=== PATIENT | female | born 1965 | race Caucasian/White ===

== ENCOUNTER 2020-08-25 19:17 | Emergency (ER) | payer BC, OTHER ==
[2020-08-25 19:56] VITALS: TEMP 98.7
[2020-08-25] MEDS ORDERED: SODIUM CHLORIDE 0.9% 1,000 ML IV STA (20:33)
[2020-08-25] MEDS ORDERED: diphenhydrAMINE 50 MG/ML 1 ML VIAL IVP STA (20:34)
[2020-08-25] MEDS ORDERED: KETOROLAC 15 MG/ML 1 ML VIAL IVP STA (20:34)
[2020-08-25] MEDS ORDERED: METOCLOPRAMIDE 5 MG/ML 2 ML VIAL IVP STA (20:34)
[2020-08-25 21:07] LABS: Basophils % (A) 0 %; Eosinophils # (A) 0.1 k/uL (0-0.7); Eosinophils % (A) 1 %; HCT 37.1 % (34.0-46.0); HGB 12.4 gm/dL (11.4-16.0); Lymphocytes % (A) 21 %; MCH 30.5 pg (25.0-35.0); MCHC 33.5 g/dL (31.0-37.0); MCV 91.2 fL (80.0-100.0); Monocytes # (A) 0.4 k/uL (0-1.0); Monocytes % (A) 4 %; Neutrophils # (A) 6.7 k/uL (1.3-7.7); Neutrophils % (A) 72 %; Platelet Count 251 k/uL (150-450); RBC 4.07 m/uL (3.80-5.40); RDW 13.6 % (11.5-15.5); WBC 9.4 k/uL (3.8-10.6)
--- NOTE | 2020-08-25 21:12 | ED ---
Recheck HPI - General Chief Complaint: Recheck/Abnormal Lab/Rx Stated Complaint: High Blood Pressure Time Seen by Provider: 08/25/20 20:09 Source: patient Mode of arrival: ambulatory Limitations: no limitations - History of Present Illness Initial Comments: Patient is a 55-year-old female presenting to the emergency Department with complaints of elevated blood pressure as well as a headache. Patient states she saw her PCP today for a normal checkup and had elevated blood pressure during her visit. Patient was started on losartan, took one dose and was monitoring her pressures at home. He states he remained high, in the "200's/100's" and with her headache she decided to come into the ER. She denies any chest pain, shortness of breath, nausea, vomiting, blurry vision. She states she's never had issues with her blood pressure in the past. She does have history of anxiety. She denies any recent fever or chills. She has no further complaints at this time. Upon arrival to the ER, her blood pressures 174/92, rest of vitals normal. - Related Data Home Medications Medication Instructions Recorded Confirmed ALPRAZolam [Xanax] 0.5 mg PO TID PRN 08/25/20 08/25/20 Atorvastatin [Lipitor] 80 mg PO DAILY 08/25/20 08/25/20 Ibuprofen [Motrin] 800 mg PO TID PRN 08/25/20 08/25/20 Levothyroxine Sodium 125 mcg PO SUMOWEFRSA 08/25/20 08/25/20 Levothyroxine Sodium 250 mcg PO TUTH 08/25/20 08/25/20 Losartan-Hctz 50-12.5 mg [Hyzaar 1 tab PO DAILY 08/25/20 08/25/20 50-12.5] Allergies Allergy/AdvReac Type Severity Reaction Status Date / Time No Known Allergies Allergy Verified 08/25/20 22:02 Review of Systems ROS Statement: Those systems with pertinent positive or pertinent negative responses have been documented in the HPI. ROS Other: All systems not noted in ROS Statement are negative. Past Medical History Past Medical History: Hyperlipidemia, Hypertension, Thyroid Disorder History of Any Multi-Drug Resistant Organisms: None Reported Past Surgical History: No Surgical Hx Reported Past Psychological History: Anxiety Smoking Status: Former smoker, Vaper Past Alcohol Use History: None Reported Past Drug Use History: None Reported General Exam - General Exam Comments Initial Comments: GENERAL: Patient is well-developed and well-nourished. Patient is nontoxic and in no acute distress. HEAD: Atraumatic, normocephalic. EYES: Pupils equal round and reactive to light, extraocular movements intact, sclera anicteric, conjunctiva are normal. Eyelids were unremarkable. ENT: TMs normal, nares patent, oropharynx clear without exudates. Moist mucous membranes. NECK: Normal range of motion, supple without lymphadenopathy or JVD. LUNGS: Unlabored respirations. Breath sounds clear to auscultation bilaterally and equal. No wheezes rales or rhonchi. HEART: Regular rate and rhythm without murmurs, rubs or gallops. ABDOMEN: Soft, nontender, normoactive bowel sounds. No guarding, no rebound. No masses appreciated. : Deferred MUSCULOSKELETAL: Normal extremities with adequate strength and normal range of motion, no pitting or edema. No clubbing or cyanosis. NEUROLOGICAL: Patient is alert and oriented x 3. Motor and sensory are also intact. Cranial nerves II through XII grossly intact. Symmetrical smile. Normal speech, normal gait. PSYCH: Normal mood, normal affect. SKIN: Warm, Dry, normal turgor, no rashes or lesions noted. Limitations: no limitations Course Vital Signs 08/25/20 08/25/20 19:51 21:34 Temperature 98.7 F Pulse Rate 86 70 Respiratory 20 18 Rate Blood Pressure 174/92 117/73 O2 Sat by Pulse 99 100 Oximetry Medical Decision Making - Medical Decision Making Patient is a 55-year-old female here with elevated blood pressure as well as a headache for 2 days. She was started on losartan today by her PCP and has taken one dose. Patient states her headaches been going on for 2-3 days. Her blood pressure 174/92 on arrival, rest of vitals normal. Her exam is unremarkable. Labs show no acute abnormality, patient was given fluids, Toradol, Benadryl and Reglan for her headache. Patient's blood pressure responded nicely, decreased to 117/73. Patient states her headache is also decreased. She feels well enough to be discharged. I recommended continuing with her newly prescribed a blood pressure medication. She can follow up with her PCP. Return parameters were discussed with the patient she verbalized understanding. Case discussed with Dr. Grimes. - Lab Data Result diagrams: 08/25/20 20:39 08/25/20 20:39 Lab Results 08/25/20 08/25/20 Range/Units 20:39 20:39 WBC 9.4 (3.8-10.6) k/uL RBC 4.07 (3.80-5.40) m/uL Hgb 12.4 (11.4-16.0) gm/dL Hct 37.1 (34.0-46.0) % MCV 91.2 (80.0-100.0) fL MCH 30.5 (25.0-35.0) pg MCHC 33.5 (31.0-37.0) g/dL RDW 13.6 (11.5-15.5) % Plt Count 251 (150-450) k/uL Neutrophils % 72 % Lymphocytes % 21 % Monocytes % 4 % Eosinophils % 1 % Basophils % 0 % Neutrophils # 6.7 (1.3-7.7) k/uL Lymphocytes # 2.0 (1.0-4.8) k/uL Monocytes # 0.4 (0-1.0) k/uL Eosinophils # 0.1 (0-0.7) k/uL Basophils # 0.0 (0-0.2) k/uL Sodium 137 (137-145) mmol/L Potassium 3.7 (3.5-5.1) mmol/L Chloride 103 (98-107) mmol/L Carbon Dioxide 26 (22-30) mmol/L Anion Gap 8 mmol/L BUN 12 (7-17) mg/dL Creatinine 0.67 (0.52-1.04) mg/dL Est GFR (CKD-EPI)AfAm >90 (>60 ml/min/1.73 sqM) Est GFR (CKD-EPI)NonAf >90 (>60 ml/min/1.73 sqM) Glucose 113 H (74-99) mg/dL Calcium 9.5 (8.4-10.2) mg/dL Total Bilirubin 0.8 (0.2-1.3) mg/dL AST 19 (14-36) U/L ALT 15 (4-34) U/L Alkaline Phosphatase 115 (38-126) U/L Total Protein 6.8 (6.3-8.2) g/dL Albumin 4.2 (3.5-5.0) g/dL Disposition Clinical Impression: Hypertension, Headache Disposition: HOME SELF-CARE Condition: Stable Instructions (If sedation given, give patient instructions): Acute Headache (ED) Additional Instructions: Please return to the Emergency Department if symptoms worsen or any other concerns. Continue with already prescribed medication. Increase water intake over the next few days. Follow-up with PCP as needed. Is patient prescribed a controlled substance at d/c from ED?: No Referrals: Buddy Andre DO [Primary Care Provider] - 1-2 days
[2020-08-25 21:14] LABS: ALT 15 U/L (4-34); AST 19 U/L (14-36); African American GFR (CKD) >90 (>60 ml/min/1.73 sqM); Albumin 4.2 g/dL (3.5-5.0); Alkaline Phosphatase 115 U/L (38-126); Anion Gap 8 mmol/L; Blood Urea Nitrogen 12 mg/dL (7-17); Calcium 9.5 mg/dL (8.4-10.2); Carbon Dioxide 26 mmol/L (22-30); Chloride 103 mmol/L (98-107); Glucose 113 mg/dL (74-99); Non-African American GFR(CKD) >90 (>60 ml/min/1.73 sqM); Potassium 3.7 mmol/L (3.5-5.1); Sodium 137 mmol/L (137-145); Total Bilirubin 0.8 mg/dL (0.2-1.3); Total Protein 6.8 g/dL (6.3-8.2)
[2020-08-25 21:35] VITALS: BP 117/73; PULSE 70; RESP 18
== END 2020-08-25 22:08 | disposition home or self-care (01) ==
LOC: EC 19:17
DX: I10 Essential (primary) hypertension (principal); R51.9 Headache, unspecified; E78.5 Hyperlipidemia, unspecified; F41.9 Anxiety disorder, unspecified; Z79.899 Other long term (current) drug therapy; Z79.890 Hormone replacement therapy; Z87.891 Personal history of nicotine dependence
CPT/HCPCS: 36415; 80053; 85025; 99283; 96374; 96375 ×2; 96361; J1200; J2765; J1885

== ENCOUNTER → 2022-03-14 | Outpatient (CLI) | payer OTHER ==
--- NOTE | 2022-03-14 10:40 | XR ---
EXAMINATION TYPE: XR thoracic spine 3 views complete, XR scapula 2 views LT, XR shoulder complete 3 v iews LT, XR pelvis AP view DATE OF EXAM: 03/14/2022 Comparison: None Clinical History: 56-year-old female fall and pain, S40.012A, S20.222A, S70.02XA Findings: Thoracic spine: Leftward truncal shift. 12 thoracic vertebral bodies. All pedicles are visualized. Mild degenerative disc disease lower third thoracic spine. Vertebral body heights are preserved and alignment is mainta ined. There is a 1.6 cm round calcification projecting at the right upper quadrant, possible gallstone. Left shoulder: Mild degenerative change AC joint with mild joint space narrowing and marginal spurring. Subacromial space is preserved. No tendinous or bursal calcifications. Smooth delineation of the greater tuberosi ty. No acute fracture, subluxation, or dislocation. Left scapula: No acute fracture identified. Pelvis: SI joints appear symmetric and intact. Mild degenerative changes left SI joint. Mild degenerative wellington nge pubic symphysis. Hips appear symmetric and intact. Some vascular calcifications along the medial aspect of the upper thighs on both sides. No acute fracture, subluxation, or dislocation. Impression: 1. Thoracic spine: Leftward truncal shift may be positional or due to muscle spasm or pain. Mild dege nerative disc disease lower third thoracic spine. No vertebral compression collapse or malalignment. Incidental: 1.6 cm round calcification projecting at the right upper quadrant, possible gallstone. 2. Left shoulder and left scapula: Mild AC joint OA. No acute osseous abnormality seen. 3. Pelvis: Mild left SI joint joint. No acute osseous abnormality seen.
== END | disposition home or self-care (01) ==
LOC: RADXRMAIN 09:12
PROVIDERS: ATTEND Emergency Medicine
DX: M51.34 Other intervertebral disc degeneration, thoracic region (principal); M19.012 Primary osteoarthritis, left shoulder
CPT/HCPCS: 72072; 72170

== ENCOUNTER → 2022-04-07 | Outpatient (CLI) | payer SELFPAY ==
--- NOTE | 2022-04-07 08:16 | US ---
EXAMINATION TYPE: US abdomen complete DATE OF EXAM: 04/07/2022 COMPARISON: NONE CLINICAL HISTORY: R10.11 RUQ PAIN R93.3 ABNORMAL FINDING DIAGNOSTIC IMAGING. calcification noted on recent x-ray ?gallstone EXAM MEASUREMENTS: Liver Length: 16.4 cm Gallbladder Wall: 0.2 cm CBD: 0.4 cm Spleen: 11.5 cm Right Kidney: 11.7 x 3.7 x 4.7 cm Left Kidney: 12.8 x 4.7 x 4.8 cm Pancreas: Tail obscured by overlying bowel gas Liver: cystic areas noted, largest = 2.6 x 2.4 x 2.7cm, some may be adjacent or septated cysts. Gallbladder: multiple stones Evidence for sonographic Bland's sign: no CBD: wnl Spleen: wnl Right Kidney: no evidence of hydronephrosis Left Kidney: cystic area upper pole = 2.2 x 1.7 x 2.3cm Upper IVC: wnl Abd Aorta: calcifications noted IMPRESSION: 1. Cholelithiasis. 2. Scattered hepatic cysts 3. Left renal cysts
== END | disposition home or self-care (01) ==
LOC: RADUSWWP 06:47
PROVIDERS: ATTEND Family Medicine
DX: K80.20 Calculus of gallbladder without cholecystitis without obstruction (principal); K76.89 Other specified diseases of liver; N28.1 Cyst of kidney, acquired
CPT/HCPCS: 76700

== ENCOUNTER → 2023-05-24 | Outpatient (CLI) | payer OTHER ==
--- NOTE | 2023-05-25 07:28 | MM ---
Reason for Exam: Screening (asymptomatic). Last mammogram was performed 3 year(s) and 9 month(s) ago. Patient History: Menarche at age 15. First Full-Term at age 19. Postmenopausal. Estrogen for 1 month starting at age 46. Maternal aunt had breast cancer, age 67. Risk Values: Whitney 5 year model risk: 1.1%. NCI Lifetime model risk: 6.3%. Prior Study Comparison: 08/05/2014 Bilateral Screening Mammogram, [facility]. 10/01/2015 Bilateral Screening Mammogram, [facility]. 08/08/2019 Bilateral Screening Mammogram, [facility]. Tissue Density: There are scattered fibroglandular densities. Findings: Analyzed By CAD. There is no suspicious group of microcalcifications or new suspicious mass in either breast. Overall Assessment: Benign, BI-RAD 2 Management: Screening Mammogram of both breasts in 1 year. . Patient should continue monthly self-breast exams. A clinical breast exam by your physician is recommended on an annual basis. This exam should not preclude additional follow-up of suspicious palpable abnormalities. Note on Whitney scores and lifetime risk: 1. A Whitney score greater than 3% is considered moderate risk. If this is the case, consider specialist referral to assess eligibility for a risk reducing agent. 2. If overall lifetime risk for the development of breast cancer is 20% or higher, the patient may qualify for future screening with alternating mammogram and breast MRI. Electronically signed and approved by: Alberto Drake M.D. Radiologis
== END | disposition home or self-care (01) ==
LOC: RADMAMWWP 16:45
PROVIDERS: ATTEND Family Medicine
DX: Z12.31 Encounter for screening mammogram for malignant neoplasm of breast (principal); Z78.0 Asymptomatic menopausal state; Z80.3 Family history of malignant neoplasm of breast
CPT/HCPCS: 77063; 77067